=== PATIENT | male | born 1995 | race Caucasian/White ===

== ENCOUNTER → 2020-12-14 | Outpatient (CLI) | payer OTHER ==
--- NOTE | 2020-12-14 12:16 | XR ---
EXAMINATION TYPE: XR wrist complete LT DATE OF EXAM: 12/14/2020 CLINICAL HISTORY: Chronic pain, history of remote fracture TECHNIQUE: Frontal, lateral and oblique images of the left wrist are obtained. 4 view scaphoid view is performed. COMPARISON: None FINDINGS: There is no acute fracture/dislocation evident in the left wrist. Mild narrowing base of f irst metacarpal otherwise carpal joint spaces are maintained. The overlying soft tissue appears unre markable. IMPRESSION: As above.
== END | disposition home or self-care (01) ==
LOC: RADXRMAIN 11:55
PROVIDERS: ATTEND Family Medicine
DX: M25.832 Other specified joint disorders, left wrist (principal)

== ENCOUNTER 2021-01-24 08:31 | Day surgery (SDC) | payer OTHER ==
[2021-01-22 15:16] VITALS: BMI 25.1
[2021-01-24] MEDS ORDERED: LIDOCAINE 1% (10MG/ML) FOR IV START INTRADERMA PRN (08:32)
[2021-01-24] MEDS ORDERED: LACTATED RINGERS 1,000 ML IV SCH (08:32)
[2021-01-24 08:57] VITALS: TEMP 97.1
[2021-01-24] MEDS ORDERED: PROPOFOL 10 MG/ML 20 ML VIAL IV ONE (09:22)
[2021-01-24] MEDS ORDERED: LIDOCAINE 1% INJ 10MG/ML (20 ML MDV) ONE (09:22)
--- NOTE | 2021-01-24 09:52 | P.PCN ---
Date of Procedure: 01/24/21 Procedure(s) Performed: BRIEF HISTORY: Patient is a 25-year-old, pleasant, white male scheduled for an upper endoscopy as a part of evaluation of epigastric pain for the last 2 years duration. He has been on Prilosec 20 mg daily with some improvement in his symptoms.. PROCEDURE PERFORMED: Esophagogastroduodenoscopy with biopsy. PREOPERATIVE DIAGNOSIS: Chronic epigastric pain of 2 years duration. IV sedation per anesthesia. PROCEDURE: After informed consent was obtained, the patient was brought into the endoscopy unit. IV sedation was administered by Anesthesia under continuous monitoring. Initially the Olympus GIF-140 video endoscope was inserted into the mouth. Esophagus intubated without any difficulty. It was gradually advanced into the stomach and duodenum and carefully examined. The bulb and the second part of the duodenum appeared normal. The scope at this time was withdrawn to th e stomach, adequately insufflated with air, and upon careful examination, mucosa of the antrum had mild gastritis and biopsies were done from this area. The, body, cardia and the fundus appeared normal. The scope was then withdrawn into the esophagus. Small sliding type hiatal hernia noted. The GE junction was located at 39 cm from the incisors. The esophagus appeared normal. There were no erosions or ulcerations seen, biopsies were done from the distal esophagus and the patient tolerated the procedure well. IMPRESSION: 1. Small hliatal hernia but no evidence of esophagitis or Nuno's esophagus. 2. Mild antral gastritis. RECOMMENDATIONS: The findings of this examination were discussed with the patient as well as a family. He was advised to follow with the biopsy results. he will continue with omeprazole 20 mg daily and follow antireflux measures.
[2021-01-24 09:55] VITALS: PULSE 67; RESP 16
[2021-01-24 10:05] VITALS: BP 135/83
== END 2021-01-24 10:45 | disposition home or self-care (01) ==
LOC: ORWHC2ENDO 08:31
PROVIDERS: ATTEND Internal Medicine Gastroenterology
DX: K29.50 Unspecified chronic gastritis without bleeding (principal); K44.9 Diaphragmatic hernia without obstruction or gangrene; K21.9 Gastro-esophageal reflux disease without esophagitis; F41.9 Anxiety disorder, unspecified; F32.9 Major depressive disorder, single episode, unspecified; Z79.899 Other long term (current) drug therapy
CPT/HCPCS: 88305; 43239; J2001; J2704

== ENCOUNTER → 2021-02-05 | Outpatient (CLI) | payer OTHER ==
--- NOTE | 2021-02-05 09:16 | US ---
EXAMINATION TYPE: US gallbladder DATE OF EXAM: 02/05/2021 COMPARISON: NONE CLINICAL HISTORY: Post prandial epigastric pain R10.13. EXAM MEASUREMENTS: Liver Length: 12.7 cm Gallbladder Wall: 0.2 cm CBD: 0.4 cm Right Kidney: 10.0 x 4.2 x 5.4 cm Pancreas: wnl Liver: wnl Gallbladder: No stones seen Evidence for sonographic Hsieh's sign: No CBD: wnl Right Kidney: No hydronephrosis or masses seen IMPRESSION: No distinct abnormality appreciated.
== END | disposition home or self-care (01) ==
LOC: RADUSWWP 07:52
PROVIDERS: ATTEND Family Medicine
DX: R10.13 Epigastric pain (principal)
CPT/HCPCS: 76705

== ENCOUNTER → 2021-08-14 | Outpatient (CLI) | payer BC, OTHER ==
[2021-08-14 16:37] LABS: African American GFR (CKD) 62.2 (60.0-200.0); Albumin 4.8 g/dL (3.8-4.9); Albumin/Globulin Ratio 1.14 (1.60-3.17); Anion Gap 14.7 mmol/L (10.00-18.00); Carbon Dioxide 28.3 mmol/L (20.0-27.5); Globulin 4.2 g/dL (1.6-3.3); Non-African American GFR(CKD) 53.7 (60.0-200.0); Total Bilirubin 0.5 mg/dL (0.30-1.20)
[2021-08-14 18:58] LABS: Blood Urea Nitrogen 22.6 mg/dL (9.0-27.0)
== END | disposition home or self-care (01) ==
LOC: LABWHC1 07:59
PROVIDERS: ATTEND Surgery
DX: K82.8 Other specified diseases of gallbladder (principal)
CPT/HCPCS: 36415; 80053

== ENCOUNTER 2021-08-17 10:29 | Day surgery (SDC) | payer BC, OTHER ==
[2021-08-16 08:36] VITALS: BMI 27.8
[~2021-08-17 10:29] MED LIST: ACETAMINOPHEN TAB 500 MG TAB PO PRN; DEXAMETHASONE SOD PHOSPHATE 4 MG/ML 1 ML VIAL IV ONE; HEPARIN SODIUM,PORCINE/PF 5,000 UNIT/0.5 ML SYRINGE SQ PRN; HYDROmorphone 0.5 MG/0.5 ML SYRINGE IVP PRN; LACTATED RINGERS 1,000 ML IV SCH; MIDAZOLAM 2 MG/2 ML VIAL IV PRN; ONDANSETRON 4 MG/2 ML VIAL IVP ONE; SCOPOLAMINE 1 MG/72 HR PATCH TRANSDERM ONE
--- NOTE | 2021-08-17 11:14 | P.GSHP ---
History of Present Illness H&P Date: 08/17/21 Chief Complaint: Biliary dyskinesia 26-year-old male here today for elective cholecystectomy. Patient has had complaints of right upper quadrant pain for the last few years. Ultrasound normal. HIDA scan shows a low ejection fraction. Symptoms aggravated by greasy foods. Past Medical History Past Medical History: GERD/Reflux Additional Past Medical History / Comment(s): GALLBLADDER DISORDER History of Any Multi-Drug Resistant Organisms: None Reported Additional Past Surgical History / Comment(s): EGD/COLONOSCOPY Past Anesthesia/Blood Transfusion Reactions: No Reported Reaction Smoking Status: Never smoker - Past Family History Mother Family Medical History: No Reported History Medications and Allergies Home Medications Medication Instructions Recorded Confirmed Type Omeprazole 40 mg PO DAILY 01/22/21 08/17/21 History Citalopram Hydrobromide 40 mg PO DAILY 08/16/21 08/17/21 History Allergies Allergy/AdvReac Type Severity Reaction Status Date / Time No Known Allergies Allergy Verified 08/17/21 10:44 Surgical - Exam Vital Signs Temp Pulse Resp BP Pulse Ox 97.2 F L 67 16 121/73 98 08/17/21 10:48 08/17/21 10:48 08/17/21 10:48 08/17/21 10:48 08/17/21 10:48 Physical exam: General: Well-developed, well-nourished HEENT: Normocephalic, sclerae nonicteric Abdomen: Nontender, nondistended Extremities: No edema Neuro: Alert and oriented Assessment and Plan (1) Biliary dyskinesia Narrative/Plan: Will proceed with laparoscopic cholecystectomy, possible open cholecystectomy at this time. Risks of bleeding, infection, bile leak, bile duct injury, retained common bile duct stone, trocar injury, conversion to an open procedure, hernia, anesthesia related complications were reviewed. The patient understands and wishes to proceed. Current Visit: Yes Status: Acute Code(s): K82.8 - OTHER SPECIFIED DISEASES OF GALLBLADDER SNOMED Code(s): 456816319
[2021-08-17] MEDS ORDERED: KETOROLAC 15 MG/ML 1 ML VIAL ONE (12:26)
[2021-08-17] MEDS ORDERED: SUCCINYLCHOLINE CHLORIDE 100 MG/5 ML SYR IV ONE (12:26)
[2021-08-17] MEDS ORDERED: NEOSTIGMINE 1 MG/ML 10 ML VIAL ONE (12:26)
[2021-08-17] MEDS ORDERED: HYDROmorphone (PF) 1 MG/ML ONE (12:26)
[2021-08-17] MEDS ORDERED: GLYCOPYRROLATE 0.2 MG/ML 2 ML VIAL ONE (12:26)
[2021-08-17] MEDS ORDERED: ROCURONIUM 10 MG/ML (5 ML VIAL) IV ONE (12:26)
[2021-08-17] MEDS ORDERED: fentaNYL (PF) 50 MCG/ML 2 ML AMP ONE (12:26)
[2021-08-17] MEDS ORDERED: PROPOFOL 10 MG/ML 20 ML VIAL IV ONE (12:26)
[2021-08-17] MEDS ORDERED: LIDOCAINE 2% INJ 20 MG/ML (2 ML VIAL) ONE (12:26)
[2021-08-17] MEDS ORDERED: MIDAZOLAM 2 MG/2 ML VIAL ONE (12:26)
[2021-08-17] MEDS ORDERED: BUPIVACAINE (PF) 0.25% 30 ML VIAL SQ ONE ×2 (12:44→12:46)
--- NOTE | 2021-08-17 13:36 | P.OP ---
Date of Procedure: 08/17/21 Procedure(s) Performed: PREOPERATIVE DIAGNOSIS: Biliary dyskinesia POSTOPERATIVE DIAGNOSIS: Same PROCEDURE: Laparoscopic cholecystectomy SURGEON: Martha EBL: Minimal see anesthesia record ANESTHESIA: Gen. COMPLICATIONS: None OPERATIVE PROCEDURE: The patient was brought and placed on the operating room table in the supine position. The patient was placed under general anesthesia at that time. The abdomen was prepped and draped in the usual sterile fashion. A small vertical infraumbilical incision was made. The fascia was grasped with the Shiela forceps. The fascia was retracted anteriorly. The Veress needle was advanced into the peritoneal cavity. The saline drop test was normal. Insufflation took place up to 15 mmHg. A 5 mm optical trocar was advanced and the peritoneal cavity. 2 additional 5 mm trochars were placed in the right upper quadrant under direct visualization. A 12 mm trocar was advanced into the epigastric incision site. There were adhesions between the zofia-colonic fat in the gallbladder that were lysed using both blunt dissection and electrocautery. The gallbladder wall itself was also mildly thickened. The gallbladder was retracted superiorly and laterally. The peritoneum overlying the infundibulum was bluntly dissected. The patient's cystic duct was visualized. The junction between the cystic duct common and hepatic duct was identified. The critical view of safety was achieved after blunt dissection. The cystic duct was then divided after placement of 3 12 mm clips on the patient's side and one on the specimen side. The cystic artery was identified and clipped as well. A small vessel was seen along the gallbladder fossa and clipped as well. The gallbladder was then removed from the liver bed using electrocautery. The gallbladder was then removed from the epigastric trocar site with an Endo Catch bag. The gallbladder fossa was irrigated with saline. There was no evidence of any bleeding or biliary drainage seen. The fascia at the 12 millimeter site was closed using a Walter-Tala 0 Vicryl stitch. The trochars were then removed. The skin at all 4 sites was closed using a 4-0 Monocryl stitch. Skin glue was utilized on the incision sites. At the end of this procedure the sponge and needle counts were correct. DISPOSITION: Stable to the recovery room
[2021-08-17 13:40] VITALS: TEMP 96.9
[2021-08-17 14:19] VITALS: RESP 18
[2021-08-17 16:23] VITALS: BP 122/71; PULSE 72
[2021-08-17] MEDS ORDERED: IBUPROFEN 600 MG TAB PO SCH (16:30)
[2021-08-17] MEDS ORDERED: ACETAMINOPHEN TAB 325 MG TAB PO SCH (18:00)
== END 2021-08-17 16:42 | disposition home or self-care (01) ==
LOC: OR 10:29
PROVIDERS: ATTEND Surgery
DX: K81.1 Chronic cholecystitis (principal); F32.A Depression, unspecified; K21.9 Gastro-esophageal reflux disease without esophagitis; F41.9 Anxiety disorder, unspecified; K44.9 Diaphragmatic hernia without obstruction or gangrene; Z79.899 Other long term (current) drug therapy; Z98.890 Other specified postprocedural states
CPT/HCPCS: 88304; 47562; J2250; J1100; J2710; J0690; J2405; J3010; J1170; J1885; J0330; J2704; J1644; J2001

== ENCOUNTER 2023-08-01 09:20 | Inpatient (IN) | payer BC, OTHER ==
--- NOTE | 2023-08-01 09:42 | ED ---
Abdominal Pain HPI - General Chief Complaint: Abdominal Pain Stated Complaint: Abd pain/BRADLEY Time Seen by Provider: 08/01/23 09:33 Source: patient, RN notes reviewed Mode of arrival: ambulatory Limitations: no limitations - History of Present Illness Initial Comments: This is a 28-year-old male who presents to the emergency department for left lower quadrant abdominal pain. Symptoms started about 4 days ago. Denies any radiation of pain into the back or elsewhere. Denies any nausea/vomiting or changes in bowel/bladder habits. Also denies any history of similar symptoms in the past. He has no known history of diverticulosis but does have a family history of this. MD Complaint: abdominal pain - Related Data Home Medications Medication Instructions Recorded Confirmed Desvenlafaxine [Desvenlafaxine ER] 50 mg PO DAILY 08/01/23 08/01/23 Pantoprazole [Protonix] 40 mg PO DAILY 08/01/23 08/01/23 Ramelteon 8 mg PO HS 08/01/23 08/01/23 hydrOXYzine pamoate [Vistaril] 50 mg PO HS 08/01/23 08/01/23 Allergies Allergy/AdvReac Type Severity Reaction Status Date / Time No Known Allergies Allergy Verified 08/01/23 10:09 Review of Systems ROS Statement: Those systems with pertinent positive or pertinent negative responses have been documented in the HPI. ROS Other: All systems not noted in ROS Statement are negative. Past Medical History Past Medical History: No Reported History Past Surgical History: Cholecystectomy Past Psychological History: Anxiety, Depression Smoking Status: Never smoker Past Alcohol Use History: None Reported Past Drug Use History: Marijuana General Exam Limitations: no limitations General appearance: alert, in no apparent distress Head exam: Present: atraumatic, normocephalic, normal inspection Respiratory exam: Present: normal lung sounds bilaterally. Absent: respiratory distress, wheezes, rales, rhonchi, stridor Cardiovascular Exam: Present: regular rate, normal rhythm, normal heart sounds. Absent: systolic murmur, diastolic murmur, rubs, gallop, clicks GI/Abdominal exam: Present: soft, tenderness (LLQ), normal bowel sounds. Absent: distended Neurological exam: Present: alert, oriented X3, CN II-XII intact Psychiatric exam: Present: normal affect, normal mood Skin exam: Present: warm, dry, intact, normal color. Absent: rash Course Vital Signs 04/19/24 04/19/24 04/19/24 09:25 09:55 11:39 Temperature 98.1 F 98.7 F Pulse Rate 92 80 69 Respiratory 18 17 18 Rate Blood Pressure 142/83 119/74 119/83 O2 Sat by Pulse 99 100 100 Oximetry Medical Decision Making - Medical Decision Making This is a 28 year old male who presents to the emergency department for abdominal pain. Was pt. sent in by a medical professional or institution? @ -No Did you speak to anyone other than the patient for history? @ -No Did you review nursing and triage notes? @ -Yes, and I agree, it is accurate with regards to the patient's symptoms. Were old charts reviewed? @ -No Differential Diagnosis? @ -Differential Abdominal Pain Men: Appendicitis, cholecystitis, diverticulosis, ischemic bowel, pancreatitis, hepatitis, UTI, gastroenteritis, AAA, incarcerated hernia, bowel obstruction, constipation, inflammatory bowel, hepatitis, peptic ulcer disease, splenic infarction, perforated viscus, testicular torsion, this is not meant to be an all-inclusive list EKG interpreted by me (3pts min.)? @ -Not obtained X-rays interpreted by me (1pt min.)? @ -Not obtained CT interpreted by me (1pt min.)? @ -CT scan of the abdomen and pelvis obtained. My interpretation identifies diverticulosis. U/S interpreted by me (1pt. min.)? @ -Not obtained What testing was considered but not performed? (CT, X-rays, U/S, labs)? Why? @ -None What meds were considered but not given? Why? @ -None Did you discuss the management of the patient with other professionals? @ -Yes, Dr. Ibrahim, who accepts the patient for admission. Did you reconcile home meds? @ -Yes Was smoking cessation discussed for >3mins.? @ -No Was critical care preformed (if so, how long)? @ -No Were there social determinants of health that impacted care today? How? (Homelessness, low income, unemployed, alcoholism, drug addiction, transportation, low edu. Level, literacy, decrease access to med. care, correction, rehab)? @ -No Was there de-escalation of care discussed even if they declined? (Discuss DNR or withdrawal of care, Hospice)? @ -No What co-morbidities impacted this encounter? (DM, HTN, Smoking, COPD, CAD, Cancer, CVA, Hep., AIDS, mental health diagnosis, sleep apnea, morbid obesity)? @ -None Was patient admitted / discharged? @ -Admitted. Lab work is fairly unremarkable. Potassium slightly elevated at 5.4 and liver enzymes mildly elevated as well. CT scan of the abdomen and pelvis obtained demonstrating either a severely inflamed diverticulum at the junction of the descending and sigmoid colon versus severe inflammation relating to a necrosing epiploic appendage/epiploic appendagitis. Given these findings, patient was admitted to medicine for diverticulitis versus epiploic appendagitis. Blood cultures were obtained and the patient was started on Zosyn and maintenance fluids. Consult placed for general surgery. q3h lactic acid levels ordered per admitting team's request as well. Undiagnosed new problem with uncertain prognosis? @ -None Drug Therapy requiring intensive monitoring for toxicity (Heparin, Nitro, Insulin, Cardizem)? @ -None Were any procedures done? @ -None Diagnosis/symptom? @ -Diverticulitis versus epiploic appendagitis Acute, or Chronic, or Acute on Chronic? @ -Acute Uncomplicated (without systemic symptoms) or Complicated (systemic symptoms)? @ -Complicated Side effects of treatment? @ -None Exacerbation, Progression, or Severe Exacerbation] @ -Not applicable Poses a threat to life or bodily function? @ -Yes This case was discussed in detail with the attending ED physician, Dr. Arce. Presentation, findings, and treatment plan discussed in detail as well. - Lab Data Result diagrams: 08/01/23 09:46 08/01/23 09:46 Lab Results 08/01/23 08/01/23 08/01/23 Range/Units 09:46 09:46 09:46 WBC 10.3 (3.8-10.6) k/uL RBC 5.22 (4.30-5.90) m/uL Hgb 15.2 (13.0-17.5) gm/dL Hct 45.9 (39.0-53.0) % MCV 88.0 (80.0-100.0) fL MCH 29.1 (25.0-35.0) pg MCHC 33.1 (31.0-37.0) g/dL RDW 12.6 (11.5-15.5) % Plt Count 389 (150-450) k/uL MPV 8.0 Neutrophils % 73 % Lymphocytes % 19 % Monocytes % 5 % Eosinophils % 1 % Basophils % 1 % Neutrophils # 7.5 (1.3-7.7) k/uL Lymphocytes # 2.0 (1.0-4.8) k/uL Monocytes # 0.5 (0-1.0) k/uL Eosinophils # 0.1 (0-0.7) k/uL Basophils # 0.1 (0-0.2) k/uL Sodium 141 (137-145) mmol/L Potassium 5.4 H (3.5-5.1) mmol/L Chloride 104 (98-107) mmol/L Carbon Dioxide 26 (22-30) mmol/L Anion Gap 11 mmol/L BUN 20 (9-20) mg/dL Creatinine 0.86 (0.66-1.25) mg/dL Est GFR (CKD-EPI)AfAm >90 (>60 ml/min/1.73 sqM) Est GFR (CKD-EPI)NonAf >90 (>60 ml/min/1.73 sqM) Glucose 98 (74-99) mg/dL Plasma Lactic Acid Cecilio 2.0 (0.7-2.0) mmol/L Calcium 10.0 (8.4-10.2) mg/dL Total Bilirubin 0.7 (0.2-1.3) mg/dL AST 79 H (17-59) U/L ALT 129 H (4-49) U/L Alkaline Phosphatase 79 (38-126) U/L C-Reactive Protein (<1.0) mg/dL Total Protein 7.7 (6.3-8.2) g/dL Albumin 4.5 (3.5-5.0) g/dL Amylase 59 (30-110) U/L Lipase 87 (23-300) U/L 08/01/23 Range/Units 09:46 WBC (3.8-10.6) k/uL RBC (4.30-5.90) m/uL Hgb (13.0-17.5) gm/dL Hct (39.0-53.0) % MCV (80.0-100.0) fL MCH (25.0-35.0) pg MCHC (31.0-37.0) g/dL RDW (11.5-15.5) % Plt Count (150-450) k/uL MPV Neutrophils % % Lymphocytes % % Monocytes % % Eosinophils % % Basophils % % Neutrophils # (1.3-7.7) k/uL Lymphocytes # (1.0-4.8) k/uL Monocytes # (0-1.0) k/uL Eosinophils # (0-0.7) k/uL Basophils # (0-0.2) k/uL Sodium (137-145) mmol/L Potassium (3.5-5.1) mmol/L Chloride (98-107) mmol/L Carbon Dioxide (22-30) mmol/L Anion Gap mmol/L BUN (9-20) mg/dL Creatinine (0.66-1.25) mg/dL Est GFR (CKD-EPI)AfAm (>60 ml/min/1.73 sqM) Est GFR (CKD-EPI)NonAf (>60 ml/min/1.73 sqM) Glucose (74-99) mg/dL Plasma Lactic Acid Cecilio (0.7-2.0) mmol/L Calcium (8.4-10.2) mg/dL Total Bilirubin (0.2-1.3) mg/dL AST (17-59) U/L ALT (4-49) U/L Alkaline Phosphatase (38-126) U/L C-Reactive Protein 4.0 H (<1.0) mg/dL Total Protein (6.3-8.2) g/dL Albumin (3.5-5.0) g/dL Amylase (30-110) U/L Lipase (23-300) U/L - Radiology Data Radiology results: report reviewed, image reviewed Disposition Clinical Impression: Diverticulitis, Epiploic appendagitis Disposition: ADMITTED IP TO THIS [facility] Time of Disposition: 11:19
[2023-08-01] MEDS: SODIUM CHLORIDE 0.9% 1,000 ML IV STA (09:50)
[2023-08-01] MEDS: KETOROLAC 15 MG/ML 1 ML VIAL IVP STA (09:50)
[2023-08-01] MEDS: MORPHINE SULFATE 2 MG/ML SYRINGE IVP STA (09:51)
[2023-08-01] MEDS: ONDANSETRON 4 MG/2 ML VIAL IVP STA (09:52)
--- NOTE | 2023-08-01 10:31 | CT ---
EXAMINATION TYPE: CT abdomen pelvis w con DATE OF EXAM: 08/01/2023 COMPARISON: NONE HISTORY: 28-year-old male LLQ abdominal pain TECHNIQUE: Contiguous axial scanning of the abdomen and pelvis following administration of 100 ml Iso herman 300 IV contrast. Delayed images through the kidneys and coronal/sagittal reconstructions perform ed. CT DLP: 1773.5 mGycm Automated exposure control for dose reduction was used. FINDINGS: The heart is normal size without pericardial effusion. Lung bases clear without pleural effusion. No focal liver lesion or biliary ductal dilatation. Portal venous system is patent. Cholecystectomy c lips. Adrenal glands, kidneys, spleen, and pancreas within normal limits. No dilated small bowel or free air. There are some scattered prominent fluid-filled small bowel loops in the abdomen. No mesenteric or retroperitoneal adenopathy. Normal appendix. Mild overall stool burden. There is diverticulosis at the lower descending and proximal sigmoid colon. Either a focal, severely inflamed diverticulum versus severe inflammation relating to a necrosing epiploic appendage at the ju nction of the descending and sigmoid colon. The low density area measures 2.2 cm. Bladder partially distended. Tiny right-sided pelvic phleboliths. Trace free fluid in the pelvis. No pelvic lymphadenopathy. No osseous destructive process. IMPRESSION: 1. EITHER A SEVERELY INFLAMED DIVERTICULUM AT THE JUNCTION OF THE DESCENDING AND SIGMOID COLON VERSUS SEVERE INFLAMMATION RELATING TO A NECROSING EPIPLOIC APPENDAGE/EPIPLOIC APPENDAGITIS. GIVEN THE 2.2 CM FLUID DENSITY AREA HERE, CLOSE CLINICAL SURVEILLANCE IS RECOMMENDED AND FOLLOW-UP CT IF THE PATIEN T DOES NOT IMPROVE WITH CONSERVATIVE/MEDICAL MANAGEMENT. 2. NO FREE AIR. TRACE PELVIC FREE FLUID REACTIVE TO THE ABOVE INFLAMMATION.
[2023-08-01 10:45] LABS: Basophils # (A) 0.1 k/uL (0-0.2); Basophils % (A) 1 %; Eosinophils # (A) 0.1 k/uL (0-0.7); Eosinophils % (A) 1 %; HCT 45.9 % (39.0-53.0); HGB 15.2 gm/dL (13.0-17.5); Lymphocytes % (A) 19 %; MCH 29.1 pg (25.0-35.0); MCHC 33.1 g/dL (31.0-37.0); Monocytes # (A) 0.5 k/uL (0-1.0); Monocytes % (A) 5 %; Neutrophils # (A) 7.5 k/uL (1.3-7.7); Neutrophils % (A) 73 %; Platelet Count 389 k/uL (150-450); RBC 5.22 m/uL (4.30-5.90); RDW 12.6 % (11.5-15.5); WBC 10.3 k/uL (3.8-10.6)
[2023-08-01 11:01] LABS: ALT 129 U/L (4-49); AST 79 U/L (17-59); African American GFR (CKD) >90 (>60 ml/min/1.73 sqM); Albumin 4.5 g/dL (3.5-5.0); Alkaline Phosphatase 79 U/L (38-126); Amylase 59 U/L (30-110); Anion Gap 11 mmol/L; Blood Urea Nitrogen 20 mg/dL (9-20); Carbon Dioxide 26 mmol/L (22-30); Chloride 104 mmol/L (98-107); Glucose 98 mg/dL (74-99); Lipase 87 U/L (23-300); Non-African American GFR(CKD) >90 (>60 ml/min/1.73 sqM); Potassium 5.4 mmol/L (3.5-5.1); Sodium 141 mmol/L (137-145); Total Bilirubin 0.7 mg/dL (0.2-1.3); Total Protein 7.7 g/dL (6.3-8.2)
[2023-08-01] MEDS ORDERED: IBUPROFEN 400 MG TAB PO PRN (11:19)
[2023-08-01] MEDS ORDERED: NALOXONE 0.4 MG/ML 1 ML VIAL IV PRN (11:19)
[2023-08-01] MEDS ORDERED: MORPHINE SULFATE 4 MG/ML SYRINGE IV PRN (11:19)
[2023-08-01] MEDS ORDERED: ACETAMINOPHEN TAB 325 MG TAB PO PRN (11:19)
[2023-08-01] MEDS ORDERED: ONDANSETRON 4 MG/2 ML VIAL IVP PRN (11:19)
[2023-08-01] MEDS: PIPERACILLIN-TAZOBACTAM 3.375 GM in SODIUM CHLORIDE 0.9% 100 ML IVPB SCH (11:38)
[2023-08-01] MEDS: SODIUM CHLORIDE 0.9% 1,000 ML IV SCH (11:38)
[2023-08-01] MEDS: HYDROcodone/APAP 5-325MG 1 EACH TAB PO PRN (13:06)
--- NOTE | 2023-08-01 13:40 | P.GSCN ---
History of Present Illness Consult date: 08/01/23 Reason for Consult: Left lower quadrant pain History of present illness: This is a 28-year-old male who has a three-day history of left lower quadrant pain. Patient states that he has had worsening pain over the last 3 days. Patient states his pain rates in 8 out of 10 last night. He presents emergency. His CAT scan is suggestive of diverticulitis or Necrosing epiploic appendage.The patient currently states his pain is a 4-10. Past Medical History Past Medical History: No Reported History Past Surgical History: Cholecystectomy Past Psychological History: Anxiety, Depression Smoking Status: Never smoker Past Alcohol Use History: None Reported Past Drug Use History: Marijuana Medications and Allergies Home Medications Medication Instructions Recorded Confirmed Type Desvenlafaxine [Desvenlafaxine ER] 50 mg PO DAILY 08/01/23 08/01/23 History Pantoprazole [Protonix] 40 mg PO DAILY 08/01/23 08/01/23 History Ramelteon 8 mg PO HS 08/01/23 08/01/23 History hydrOXYzine pamoate [Vistaril] 50 mg PO HS 08/01/23 08/01/23 History Allergies Allergy/AdvReac Type Severity Reaction Status Date / Time No Known Allergies Allergy Verified 08/01/23 10:09 Surgical - Exam Vital Signs Temp Pulse Resp BP Pulse Ox 98.1 F 92 18 142/83 99 08/01/23 09:25 08/01/23 09:25 08/01/23 09:25 08/01/23 09:25 08/01/23 09:25 - General well developed, well nourished, no distress - Eyes PERRL - ENT normal pinna - Neck no masses - Respiratory normal expansion - Cardiovascular Rhythm: regular - Abdomen Marked tenderness left lower quadrant. Abdomen: soft Results - Labs 08/01/23 09:46 08/01/23 09:46 Abnormal Lab Results - Last 24 Hours (Table) 08/01/23 Range/Units 09:46 Potassium 5.4 H (3.5-5.1) mmol/L AST 79 H (17-59) U/L ALT 129 H (4-49) U/L Diabetes panel 08/01/23 Range/Units 09:46 Sodium 141 (137-145) mmol/L Potassium 5.4 H (3.5-5.1) mmol/L Chloride 104 (98-107) mmol/L Carbon Dioxide 26 (22-30) mmol/L BUN 20 (9-20) mg/dL Creatinine 0.86 (0.66-1.25) mg/dL Glucose 98 (74-99) mg/dL Calcium 10.0 (8.4-10.2) mg/dL AST 79 H (17-59) U/L ALT 129 H (4-49) U/L Alkaline Phosphatase 79 (38-126) U/L Total Protein 7.7 (6.3-8.2) g/dL Albumin 4.5 (3.5-5.0) g/dL Calcium panel 08/01/23 Range/Units 09:46 Calcium 10.0 (8.4-10.2) mg/dL Albumin 4.5 (3.5-5.0) g/dL Pituitary panel 08/01/23 Range/Units 09:46 Sodium 141 (137-145) mmol/L Potassium 5.4 H (3.5-5.1) mmol/L Chloride 104 (98-107) mmol/L Carbon Dioxide 26 (22-30) mmol/L BUN 20 (9-20) mg/dL Creatinine 0.86 (0.66-1.25) mg/dL Glucose 98 (74-99) mg/dL Calcium 10.0 (8.4-10.2) mg/dL Adrenal panel 08/01/23 Range/Units 09:46 Sodium 141 (137-145) mmol/L Potassium 5.4 H (3.5-5.1) mmol/L Chloride 104 (98-107) mmol/L Carbon Dioxide 26 (22-30) mmol/L BUN 20 (9-20) mg/dL Creatinine 0.86 (0.66-1.25) mg/dL Glucose 98 (74-99) mg/dL Calcium 10.0 (8.4-10.2) mg/dL Total Bilirubin 0.7 (0.2-1.3) mg/dL AST 79 H (17-59) U/L ALT 129 H (4-49) U/L Alkaline Phosphatase 79 (38-126) U/L Total Protein 7.7 (6.3-8.2) g/dL Albumin 4.5 (3.5-5.0) g/dL - Imaging CT scan - abdomen: report reviewed (Possible diverticulitis or necrosing Epiploic appendage) Assessment and Plan Plan: Diverticulitis. Patient he received IV antibiotics. He'll be reassessed in a. m.
[2023-08-01] MEDS: hydrOXYzine pamoate 25 MG CAP PO SCH (21:40)
[2023-08-01] MEDS: TEMAZEPAM 15 MG CAP PO SCH (21:40)
[2023-08-01 22:24] LABS: Appearance,Urine Clear (Clear); Bilirubin,Urine Negative (Negative); Blood,Urine Negative (Negative); Color,Urine Yellow; Glucose,Urine (UA) Negative (Negative); Ketones,Urine Negative (Negative); Leukocyte Esterase,Urine Negative (Negative); Nitrite,Urine Negative (Negative); Protein,Urine Trace (Negative); Urobilinogen,Urine <2.0 mg/dL (<2.0)
[2023-08-01 22:25] LABS: Specific Gravity,Urine >1.050 (1.001-1.035)
[2023-08-02] MEDS: DESVENLAFAXINE SUCCINATE 50 MG TAB.ER.24H PO SCH (08:54)
[2023-08-02] MEDS: PANTOPRAZOLE 40 MG/10 ML VIAL IV SCH (08:54)
[2023-08-02] MEDS ORDERED: PANTOPRAZOLE 40 MG TABLET PO SCH (09:00)
[2023-08-02] MEDS: KETOROLAC 15 MG/ML 1 ML VIAL IVP PRN (11:52)
--- NOTE | 2023-08-02 15:27 | HP ---
HISTORY AND PHYSICAL I am covering for Dr. Peck. CHIEF COMPLAINT: Abdominal pain. HISTORY OF PRESENT ILLNESS: This 28-year-old gentleman with a past medical history of no severe medical issues except cholecystectomy, anxiety, and depression, who was admitted with abdominal pain. The pain was in the left lower quadrant. Symptoms started about 4 days ago. There is not much radiation. Because of lack of improvement, the patient came to [facility]. White count is normal, however, the CAT scan of the abdomen and pelvis was done, which showed evidence of severely inflamed diverticulum at the junction of the descending and sigmoid colon. Please note, the CAT scan for detailed report. The patient was seen by Surgery, who recommended IV antibiotics. There is no history of any fever, rigors, or chills at this time. PAST MEDICAL HISTORY: History of anxiety and depression. Rest of the history and rest of the chart is also reviewed. HOME MEDICATIONS: Protonix, rest of the medications reviewed. ALLERGIES: None. FAMILY HISTORY: Bipolar and diabetes. SOCIAL HISTORY: No history of smoking or THC. REVIEW OF SYSTEMS: A 14-point review is negative except as mentioned earlier. PHYSICAL EXAMINATION: VITAL SIGNS: Pulse 74, blood pressure 119/64, and respirations 16. CHEST: Clear to auscultation. CARDIOVASCULAR: S1 and S2. ABDOMEN: Soft. Otherwise, mild diffuse tenderness in the left lower quadrant. NERVOUS SYSTEM: Nonfocal. LABORATORY DATA: Potassium 5.4, rest of labs are noted. ASSESSMENT: 1. Acute diverticulitis with left lower quadrant abdominal pain. 2. Mild hyperkalemia. 3. Insomnia history. 4. Anxiety and depression. RECOMMENDATIONS AND DISCUSSION: This is a 28-year-old gentleman, who presented with multiple complex medical issues. We will monitor the patient closely. Continue the current management, continue symptomatic treatment. Otherwise, continue broad-spectrum IV antibiotics closely for surgery. Repeat labs. The patient is on clear liquid diet. Further recommendations to follow. MMODL / IJN: [id number] /
--- NOTE | 2023-08-02 21:37 | P.PN ---
Subjective Progress Note Date: 08/02/23 Principal diagnosis: acute diverticulitis This is a 89-wjgf-Goigthtofslbom. doing well.' Objective - Vital Signs Vital signs: Vital Signs Temp 97.8 F 08/02/23 19:07 Pulse 77 08/02/23 19:07 Resp 17 08/02/23 19:07 BP 114/73 08/02/23 19:07 Pulse Ox 99 08/02/23 19:07 FiO2 Intake & Output 08/02/23 08/02/23 08/03/23 06:59 18:59 06:59 Intake Total 1065 Output Total 425 Balance 640 Intake: Intake, IV Titration 1065 Amount Piperacillin-Tazobactam 3 200 .375 gm In Sodium Chloride 0.9% 100 ml @ 25 mls/hr IVPB Q8H [facility] Rx#: [id number] Sodium Chloride 0.9% 1, 865 000 ml @ 75 mls/hr IV . [id number] [facility] Rx#:[id number] Output: Urine 425 Other: Voiding Method Urinal Urinal - Constitutional General appearance: Present: average body habitus, cooperative - EENT Eyes: Present: EOMI, PERRLA. Absent: scleral icterus - Neck Neck: Present: normal ROM. Absent: lymphadenopathy - Respiratory Respiratory: bilateral: CTA - Cardiovascular Rhythm: regular Heart sounds: normal: S1, S2 Abnormal Heart Sounds: Present: systolic murmur - Gastrointestinal General gastrointestinal: Present: normal bowel sounds Localized gastrointestinal: tender: LLQ - Labs CBC & Chem 7: 08/01/23 09:46 08/01/23 09:46 Labs: Abnormal Lab Results - Last 24 Hours (Table) 08/01/23 08/02/23 Range/Units 22:02 01:43 Plasma Lactic Acid Cecilio 0.6 L (0.7-2.0) mmol/L Ur Specific [place] >1.050 H (1.001-1.035) Urine Protein Trace H (Negative) Microbiology - Last 24 Hours (Table) 08/01/23 11:35 Blood Culture - Preliminary Blood 08/01/23 11:20 Blood Culture - Preliminary Blood Assessment and Plan Plan: Diverticulitis Nonsurgical management improving continue IV antibiotics
[2023-08-03 09:24] LABS: Basophils # (A) 0.05 X 10*3/uL (0.00-0.10); Basophils % (A) 0.7 %; Eosinophils # (A) 0.14 X 10*3/uL (0.04-0.35); HCT 41.4 % (39.6-50.0); HGB 13.4 g/dL (13.0-17.0); Lymphocytes % (A) 25.7 %; MCH 28.7 pg (27.0-32.0); MCHC 32.4 g/dL (32.0-37.0); MCV 88.7 FL (80.0-97.0); Mean Platelet Volume 10.1 FL (9.5-12.2); Monocytes # (A) 0.54 X 10*3/uL (0.20-1.00); Monocytes % (A) 7.7 %; NRBC Per 100 WBC 0 X 10*3/uL (0.00-0.01); Neutrophils # (A) 4.46 X 10*3/uL (1.80-7.70); Neutrophils % (A) 63.8 %; Platelet Count 333 X 10*3/uL (140-440); RBC 4.67 X 10*6/uL (4.40-5.60); RDW 12.3 % (11.5-14.5)
--- NOTE | 2023-08-03 09:36 | P.PN ---
Subjective Progress Note Date: 08/03/23 Patient feels well.He states his pain is improved. On exam vital signs appear stable. Abdomen is soft. Left lower quadrant pain is improved. Resolving diverticulitis. Patient is stable for discharge. Objective - Vital Signs Vital signs: Vital Signs Temp 98.5 F 08/03/23 07:46 Pulse 85 08/03/23 07:46 Resp 16 08/03/23 07:46 BP 100/63 08/03/23 07:46 Pulse Ox 98 08/03/23 07:46 FiO2 Intake & Output 08/02/23 08/03/23 08/03/23 18:59 06:59 18:59 Intake Total 1065 Balance 1065 Intake: Intake, IV Titration 1065 Amount Piperacillin-Tazobactam 3 200 .375 gm In Sodium Chloride 0.9% 100 ml @ 25 mls/hr IVPB Q8H [facility] Rx#: [id number] Sodium Chloride 0.9% 1, 865 000 ml @ 75 mls/hr IV . [id number] [facility] Rx#:[id number] Other: Voiding Method Urinal # Voids 1 1 - Labs CBC & Chem 7: 08/03/23 06:01 08/01/23 09:46 Labs: Microbiology - Last 24 Hours (Table) 08/01/23 11:35 Blood Culture - Preliminary Blood 08/01/23 11:20 Blood Culture - Preliminary Blood
[2023-08-03 10:37] LABS: BUN/Creat Ratio 8.91 Ratio (12.00-20.00); Blood Urea Nitrogen 9.8 mg/dL (9.0-27.0); Chloride 105 mmol/L (96-109); Glucose 85 mg/dL (70-110); Potassium 4.5 mmol/L (3.5-5.5); Sodium 141 mmol/L (135-145)
[2023-08-03 10:38] LABS: Calcium 9.2 mg/dL (8.7-10.3); Carbon Dioxide 25.4 mmol/L (21.6-31.8)
--- NOTE | 2023-08-03 22:51 | PN ---
PROGRESS NOTE DATE OF SERVICE: 08/03/2023 I am covering for Dr. Peck. SUBJECTIVE: This is a 28-year-old gentleman, who was admitted with acute diverticulitis, is improving significantly. No chest pain. No palpitations. No fever. OBJECTIVE: VITAL SIGNS: Pulse is 85, blood pressure 100/62, respirations 16. CHEST: Clear to auscultation. CARDIOVASCULAR: S1, S2. ABDOMEN: Soft, nontender. No mass palpable. LABORATORY DATA: Reviewed. ASSESSMENT: 1. Acute diverticulitis with left lower quadrant abdominal pain. 2. Mild hyperkalemia, improved. 3. Insomnia history. 4. Anxiety, depression. RECOMMENDATIONS AND DISCUSSION: I recommend to continue current management and continue symptomatic treatment. I recommend continue the IV antibiotics. Advance diet. Repeat labs. Dr. Peck will follow tomorrow closely for surgery. Further recommendations to follow. Possible discharge in the next 24 hours. MMODL / IJN: [id number] /
[2023-08-04 08:20] VITALS: BP 116/74; PULSE 60; RESP 17; TEMP 98.2
[2023-08-04 11:28] LABS: BUN/Creat Ratio 7.64 Ratio (12.00-20.00); Blood Urea Nitrogen 8.4 mg/dL (9.0-27.0); Calcium 9.8 mg/dL (8.7-10.3); Carbon Dioxide 25.5 mmol/L (21.6-31.8); Chloride 104 mmol/L (96-109); Glucose 81 mg/dL (70-110); Potassium 4.6 mmol/L (3.5-5.5); Sodium 141 mmol/L (135-145)
[2023-08-04 11:31] LABS: Basophils # (A) 0.03 X 10*3/uL (0.00-0.10); Basophils % (A) 0.4 %; Eosinophils # (A) 0.16 X 10*3/uL (0.04-0.35); Eosinophils % (A) 2.3 %; HCT 40.1 % (39.6-50.0); HGB 13.2 g/dL (13.0-17.0); Lymphocytes # (A) 1.97 X 10*3/uL (0.90-5.00); Lymphocytes % (A) 28.2 %; MCH 29.3 pg (27.0-32.0); MCHC 32.9 g/dL (32.0-37.0); MCV 89.1 FL (80.0-97.0); Mean Platelet Volume 10.6 FL (9.5-12.2); Monocytes % (A) 8.6 %; NRBC Per 100 WBC 0 X 10*3/uL (0.00-0.01); Neutrophils % (A) 60.2 %; Platelet Count 324 X 10*3/uL (140-440); RDW 12.3 % (11.5-14.5); WBC 6.98 X 10*3/uL (4.50-10.00)
--- NOTE | 2023-08-04 13:27 | P.PN ---
Subjective Progress Note Date: 08/04/23 CHIEF COMPLAINT: Diverticulitis HISTORY OF PRESENT ILLNESS: Patient with resolving diverticulitis. He reports improvement in the abdominal pain. He is tolerating regular diet. Afebrile. White count remains normal at 6.98. Patient feels ready for discharge. PHYSICAL EXAM: VITAL SIGNS: Reviewed. GENERAL: Well-developed in no acute distress. ABDOMEN: Soft. Nondistended. Nontender. NEUROLOGIC: Alert and oriented. Cranial nerves II through XII grossly intact. ASSESSMENT: 1. Acute diverticulitis resolved PLAN: -Patient can be discharge from surgical standpoint -Continue antibiotics -Patient will need colonoscopy in 4 to 6 weeks Physician Weeder Thinner note has been reviewed by physician. Signing provider agrees with the documented findings, assessment, and plan of care. Objective - Vital Signs Vital signs: Vital Signs Temp 98.2 F 08/04/23 07:12 Pulse 60 08/04/23 07:12 Resp 17 08/04/23 07:12 BP 116/74 08/04/23 07:12 Pulse Ox 98 08/04/23 07:12 FiO2 Intake & Output 08/03/23 08/04/23 08/04/23 18:59 06:59 18:59 Intake Total 1000 Balance 1000 Intake: Intake, IV Titration 800 Amount Piperacillin-Tazobactam 3 200 .375 gm In Sodium Chloride 0.9% 100 ml @ 25 mls/hr IVPB Q8H [facility] Rx#: [id number] Sodium Chloride 0.9% 1, 600 000 ml @ 75 mls/hr IV . [id number] [facility] Rx#:[id number] Oral 200 Other: Voiding Method Urinal Toilet Toilet Urinal # Voids 1 2 - Labs CBC & Chem 7: 08/04/23 07:08 08/04/23 07:08 Labs: Abnormal Lab Results - Last 24 Hours (Table) 08/04/23 Range/Units 07:08 BUN 8.4 L (9.0-27.0) mg/dL BUN/Creatinine Ratio 7.64 L (12.00-20.00) Ratio Microbiology - Last 24 Hours (Table) 08/01/23 11:35 Blood Culture - Preliminary Blood 08/01/23 11:20 Blood Culture - Preliminary Blood
== END 2023-08-04 13:26 | disposition home or self-care (01) | DRG 392 ==
LOC: EC 09:20 → 4SSUR 11:11 → 5NMEDONC 15:33
PROVIDERS: ADMIT Hospitalist; ATTEND Hospitalist
DX: K57.32 Diverticulitis of large intestine without perforation or abscess without bleeding (principal); E87.5 Hyperkalemia; F32.A Depression, unspecified; F41.9 Anxiety disorder, unspecified; G47.00 Insomnia, unspecified; K63.89 Other specified diseases of intestine; Z79.899 Other long term (current) drug therapy; Z28.21 Immunization not carried out because of patient refusal; Z81.8 Family history of other mental and behavioral disorders
CPT/HCPCS: 36415; 74177; 80048; 80053; 81003; 82150; 83605; 83690; 85025; 85652; 86140; 87040; 96361; 96365; 96366; 96375; 99285

== ENCOUNTER → 2023-08-18 | Outpatient (CLI) | payer BC ==
--- NOTE | 2023-08-18 18:17 | CT ---
EXAMINATION TYPE: CT brain wo con DATE OF EXAM: 08/18/2023 COMPARISON: None HISTORY: headaches CT DLP: 1012.7 mGycm. Automated Exposure Control for Dose Reduction was Utilized. TECHNIQUE: CT scan of the head is performed without contrast. Findings: The ventricles, basal cisterns and sulci over the convexities are within normal limits and there is n o mass effect or shift of midline structures. There is a small linear calcific density in the right frontal lobe medially near the falx which could represent dystrophic calcification or dense vascular calcification. MRA of the brain is recommended for further evaluation to rule out aneurysm. The posterior fossa including the brainstem, fourth ventricle and cerebellar pontine angles appear no rmal. Intraorbital contents appear normal and symmetric. Visualized paranasal sinuses and mastoid air cells are well aerated. The calvarium is intact. IMPRESSION: Right frontal region calcification is identified at described above.. MRI of the brain would be usefu l for further evaluation to definitively rule out aneurysm. There is no acute bleed or mass effect.
== END | disposition home or self-care (01) ==
LOC: RADCTMAIN 16:42
PROVIDERS: ATTEND Family Medicine
DX: G93.89 Other specified disorders of brain (principal)
CPT/HCPCS: 70450

== ENCOUNTER → 2023-11-24 | Outpatient (CLI) | payer BC ==
--- NOTE | 2023-12-20 19:01 | US ---
Site ID [facility] Patient Stalin Thakur ID [id number] Age/Gender: 28Y, O Order # N/A Procedure US liver Date 11/24/2023 9:34:00 AM INDICATION: Patient age: [age] year old; Reason for study: Elevated LFTs COMPARISON: None, please note PACS Production downtime occurred during the radiologist interpretation of these images with limited priors/reports.. TECHNIQUE: Multiple grayscale and color doppler ultrasound images of the right upper abdomen obtained utilizing transabdominal imaging. FINDINGS: PANCREAS: Limited evaluation of the pancreas secondary to bowel. LIVER: The liver demonstrates a normal echotexture. There is no evidence of dilated ducts, cystic structures , or solid mass. Measures 14.6 cm in greatest dimension. GALLBLADDER: The gallbladder is surgically removed. The common duct measures approximately 5 mm. RIGHT KIDNEY: The right kidney measures 9.6 x 4.8 x 5.0 cm, without evidence of hydronephrosis, shadowing calculus, or contour deforming solid mass. Renal parenchymal echogenicity is within normal limits. IMPRESSION: No sonographic evidence for acute process.
== END | disposition home or self-care (01) ==
LOC: RADUSWWP 12:00
PROVIDERS: ATTEND Family Medicine
DX: R94.5 Abnormal results of liver function studies (principal)
CPT/HCPCS: 76705

== ENCOUNTER → 2024-05-17 | Outpatient (CLI) | payer OTHER ==
--- NOTE | 2024-05-17 08:59 | MR ---
EXAMINATION TYPE: MR brain wo/w con DATE OF EXAM: 05/17/2024 7:59 AM COMPARISON: MRA same day. 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 The patient was then given intravenous contrast and multi planar, T1 fat-saturation images wer e obtained. IV Contrast: 12 mL Gadobutrol FINDINGS: The headley-white junctions, ventricular system, basal cisterns appear unremarkable. Diffusion-weighted imaging shows no evidence of restricted diffusion to suggest acute/subacute infarct. Intracranial ar terial flow voids are maintained. Midline structures show no abnormality. Scattered foci of high T2 s ignal intensity are seen within the periventricular white matter. The susceptibility weighted images do not reveal any evidence for micro-hemorrhage. After administration of gadolinium, no abnormal enha ncement is seen. Left posterior lateral frontal developmental venous anomly. The bone marrow signal is within normal limits. Paranasal sinuses and mastoid air cells: No significant paranasal sinus disease. Visualized orbits: Orbital contents are intact. Enlarged palatine tonsils bilaterally. IMPRESSION: 1. No white matter changes definitively visualized. No evidence for active demyelination. No evidence of intracranial mass, acute/subacute infarct, or abnormal enhancement. 2. 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 3. Enlarged palatine tonsils bilaterally. Correlate for tonsillitis. [facility], , 05/17/2024 8:57 AM
--- NOTE | 2024-05-17 09:05 | MR ---
EXAMINATION TYPE: MR angio head wo con DATE OF EXAM: 05/17/2024 7:50 AM COMPARISON: Same day MRI and CT. 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 IV Contrast: mL (None, if empty) FINDINGS: Vertebral arteries: The vertebral arteries are patent. Vertebral arteries are: Codominant. Basilar artery: The basilar artery is intact. The basilar artery bifurcation is normal. Internal Carotid arteries: The cervical, petrous, cavernous and supraclinoid segments are normal. RAQUEL: Patent with no evidence of aneurysm. ACOM: Present without evidence of aneurysm. MCA: Patent with no evidence of aneurysm. VAULT CLERK: Patent with no evidence of aneurysm. PCOM: Hypoplastic bilaterally. IMPRESSION: No evidence of aneurysm or significant stenosis. [facility], , 05/17/2024 9:03 AM
== END | disposition home or self-care (01) ==
LOC: RADMRIMAIN 07:12
PROVIDERS: ATTEND Psychiatry & Neurology Neurology
DX: G43.111 Migraine with aura, intractable, with status migrainosus (principal); J03.90 Acute tonsillitis, unspecified
CPT/HCPCS: 70544; 70553; A9585